=== PATIENT | male | born 1970 | race African-American/Black ===

== ENCOUNTER 2020-07-04 18:26 | Inpatient (IN) | payer OTHER ==
[2020-07-04 23:33] VITALS: BMI 43.0
[2020-07-05] MEDS ORDERED: METHOCARBAMOL 500 MG TABLET PO PRN (00:01)
[2020-07-05] MEDS ORDERED: BISMUTH SUBSALICYLATE 524 MG/30 ML UD PO PRN (00:01)
[2020-07-05] MEDS ORDERED: MENTHOL/PHENOL 1 EACH UD MM PRN (00:01)
[2020-07-05] MEDS ORDERED: MAG HYDROX/AL HYDROX/SIMETH 30 ML UNIT-DOSE CUP PO PRN (00:01)
[2020-07-05] MEDS ORDERED: IBUPROFEN 400 MG TABLET (FP) PO PRN (00:01)
[2020-07-05] MEDS ORDERED: ACETAMINOPHEN 325 MG TABLET (FP) PO PRN (00:01)
[2020-07-05] MEDS ORDERED: MAGNESIUM CITRATE 300 ML BOTTLE PO PRN (00:01)
[2020-07-05] MEDS ORDERED: MAGNESIUM HYDROX 2400MG/30ML ORAL SUSPENSION 30 ML CUP PO PRN (00:01)
[2020-07-05] MEDS ORDERED: ONDANSETRON *ODT* 4 MG TABLET SL PRN (00:01)
[2020-07-05] MEDS ORDERED: diazePAM 5 MG TABLET PO PRN (00:04)
[2020-07-05] MEDS ORDERED: NICOTINE POLACRILEX 2 MG GUM BUC PRN (00:05)
[2020-07-05] MEDS: amLODIPine BESYLATE 5 MG TABLET (FP) PO SCH (10:37)
[2020-07-05] MEDS: PRENATAL VITAMINS W/ FOLIC ACID TABLET (FP) PO SCH (10:37)
[2020-07-05] MEDS: OLANZapine 10 MG TABLET PO SCH (12:09)
[2020-07-05] MEDS ORDERED: diphenhydrAMINE HCL 25 MG CAPSULE (FP) PO ONE (21:56)
[2020-07-05] MEDS: THIAMINE HCL 100 MG TABLET (FP) PO SCH (22:52)
[2020-07-05] MEDS: DIVALPROEX SODIUM 500 MG TABLET E.C. PO SCH (22:52)
[2020-07-05] MEDS: diazePAM 5 MG TABLET PO SCH (22:52)
[2020-07-05] MEDS: MELATONIN 5 MG TABLETS PO SCH (22:52)
[2020-07-05] MEDS: diphenhydrAMINE HCL 50 MG CAPSULE PO SCH (22:54)
[2020-07-06] MEDS: diazePAM 5 MG TABLET PO SCH ×4 (06:37→22:41)
[2020-07-06] MEDS: amLODIPine BESYLATE 5 MG TABLET (FP) PO SCH (10:23)
[2020-07-06] MEDS: OLANZapine 10 MG TABLET PO SCH (10:25)
[2020-07-06] MEDS: PRENATAL VITAMINS W/ FOLIC ACID TABLET (FP) PO SCH (10:25)
[2020-07-06 11:03] LABS: POTASSIUM 4.2 mmol/L (3.5-5.1)
[2020-07-06 11:12] LABS: HEMATOCRIT 39.7 % (35.4-49); HEMOGLOBIN 13.4 GM/dL (11.7-16.9); MCH 31.1 pg (25.7-33.7); MCHC 33.7 g/dl (32.0-35.9); MEAN CELL VOLUME 92.3 fl (80-96); MEAN PLT VOLUME 8.8 fl (7.5-11.1); PLATELET COUNT 267 K/MM3 (134-434); RDW 15.1 % (11.9-15.9); WHITE BLOOD COUNT 8.4 K/mm3 (4.0-10.0)
[2020-07-06 11:14] LABS: ALBUMIN 3.2 g/dl (3.4-5.0); CALCIUM 8.8 mg/dL (8.5-10.1)
[2020-07-06 11:18] LABS: CREATININE 0.7 mg/dL (0.55-1.3)
[2020-07-06 11:19] LABS: BILIRUBIN,TOTAL 1.5 mg/dL (0.2-1); TOT PROT 6.6 g/dl (6.4-8.2)
[2020-07-06] MEDS ORDERED: diphenhydrAMINE HCL 25 MG CAPSULE (FP) PO ONE (21:06)
[2020-07-06] MEDS: DIVALPROEX SODIUM 500 MG TABLET E.C. PO SCH (22:41)
[2020-07-06] MEDS: THIAMINE HCL 100 MG TABLET (FP) PO SCH (22:41)
[2020-07-06] MEDS: MELATONIN 5 MG TABLETS PO SCH (22:41)
[2020-07-06] MEDS: diphenhydrAMINE HCL 50 MG CAPSULE PO SCH (22:44)
[2020-07-07] MEDS: diazePAM 5 MG TABLET PO SCH ×3 (06:41→22:45)
[2020-07-07] MEDS: PRENATAL VITAMINS W/ FOLIC ACID TABLET (FP) PO SCH (10:40)
[2020-07-07] MEDS: OLANZapine 10 MG TABLET PO SCH (10:40)
[2020-07-07] MEDS: amLODIPine BESYLATE 5 MG TABLET (FP) PO SCH (10:40)
[2020-07-07] MEDS: THIAMINE HCL 100 MG TABLET (FP) PO SCH (22:45)
[2020-07-07] MEDS: DIVALPROEX SODIUM 500 MG TABLET E.C. PO SCH (22:45)
[2020-07-07] MEDS: diphenhydrAMINE HCL 50 MG CAPSULE PO SCH (22:47)
[2020-07-07] MEDS: MELATONIN 5 MG TABLETS PO SCH (22:47)
[2020-07-08] MEDS: diazePAM 5 MG TABLET PO SCH ×2 (06:32→17:35)
[2020-07-08] MEDS: OLANZapine 10 MG TABLET PO SCH (09:54)
[2020-07-08] MEDS: PRENATAL VITAMINS W/ FOLIC ACID TABLET (FP) PO SCH (09:54)
[2020-07-08] MEDS: amLODIPine BESYLATE 5 MG TABLET (FP) PO SCH (09:54)
[2020-07-08] MEDS ORDERED: diphenhydrAMINE HCL 25 MG CAPSULE (FP) PO ONE (21:59)
[2020-07-08] MEDS: MELATONIN 5 MG TABLETS PO SCH (22:48)
[2020-07-08] MEDS: THIAMINE HCL 100 MG TABLET (FP) PO SCH (22:48)
[2020-07-08] MEDS: DIVALPROEX SODIUM 500 MG TABLET E.C. PO SCH (22:48)
[2020-07-08] MEDS: diphenhydrAMINE HCL 50 MG CAPSULE PO SCH (22:48)
[2020-07-09 05:43] VITALS: PULSE 94
[2020-07-09] MEDS ORDERED: diazePAM 5 MG TABLET PO ONE (06:00)
[2020-07-09] MEDS: OLANZapine 10 MG TABLET PO SCH (09:47)
[2020-07-09] MEDS: amLODIPine BESYLATE 5 MG TABLET (FP) PO SCH (09:47)
[2020-07-09] MEDS: PRENATAL VITAMINS W/ FOLIC ACID TABLET (FP) PO SCH (09:47)
[2020-07-09 10:18] VITALS: BP 96/58; TEMP 97.4
== END 2020-07-09 09:30 | disposition home or self-care (01) | DRG 775 ==
LOC: YASAS 18:26 → Y6N 07-05 00:29
PROVIDERS: ADMIT Allergy & Immunology; ATTEND Allergy & Immunology
PROC: HZ2ZZZZ Detoxification Services for Substance Abuse Treatment (ICD-10-PCS; principal; 2020-07-05)
DX: F10.230 Alcohol dependence with withdrawal, uncomplicated (principal); F17.210 Nicotine dependence, cigarettes, uncomplicated; F20.0 Paranoid schizophrenia; F10.282 Alcohol dependence with alcohol-induced sleep disorder; F10.24 Alcohol dependence with alcohol-induced mood disorder; I10 Essential (primary) hypertension; E11.9 Type 2 diabetes mellitus without complications; N62 Hypertrophy of breast; R26.89 Other abnormalities of gait and mobility; R00.0 Tachycardia, unspecified; E66.01 Morbid (severe) obesity due to excess calories; Z68.41 Body mass index [BMI] 40.0-44.9, adult; Z98.890 Other specified postprocedural states; Z56.0 Unemployment, unspecified; Z59.0 Homelessness
CPT/HCPCS: 36415; 71045-TC-FY; 80053; 85027; 86780; C9803; U0003